=== PATIENT | male | born 1990 | race Caucasian/White ===

== ENCOUNTER → 2023-05-31 09:50 | Outpatient (BNVA) | payer SELFPAY | PROVIDERS: Visit Provider Internal Medicine | DX: Z02.79 Encounter for issue of other medical certificate (principal) ==

== ENCOUNTER 2024-12-24 20:01 | Emergency (ER) | payer SELFPAY ==
[2024-12-24 20:22] VITALS: BP 143/66; PULSE 95; RESP 18; TEMP 36.6; O2SAT 95; BMI 38.0
--- NOTE | 2024-12-24 20:29 | ED.GENADULT ---
HPI - General Adult General Chief complaint: Extremity Injury, Lower Stated complaint: left leg pain (r/o blood clot) Time Seen by Provider: 12/25/24 00:21 Source: patient Mode of arrival: wheelchair Limitations: no limitations History of Present Illness ED Provider: HPI narrative: 34-year-old male presenting with left lower extremity pain, he states he was running to his car and felt a sharp pain in the back of his left calf and since then he has not been able to bear weight, no deformity no fevers or chills. He also sustained superficial scratch to the skull is not causing him any issues Related Data Allergies Allergy/AdvReac Type Severity Reaction Status Date / Time No Known Allergies Allergy Mild NKA Verified 12/24/24 20:27 PMF Social History Social History Smoked in Last 30 Days: No Use of substances other than those prescribed or required for medical reasons: No Advance Directives: No Advance Directives Information Provided: No Do you have a plan to hurt others: No Plan Physical Exam ED Vital Signs: Vital Signs - 24 hr 12/24/24 20:22 12/25/24 01:02 Temperature 98 F 98.1 F Pulse Rate 95 87 Respiratory Rate 18 16 Blood Pressure 143/66 H 139/84 Pulse Oximetry 95 98 Oxygen Delivery Method Room Air Room Air BMI result Body Mass Index 38.0 Course Course Course Narrative: Medical screening exam performed. Please refer to detailed history, exam, evaluation, and management by primary provider. Left calf pain, after running, twisting. Able to bear weight and ambulate. No erythema or edema. JS Medications Administered Discontinued Medications Generic Name Dose Route Start Last Admin Trade Name Jackyq PRN Reason Stop Dose Admin Dexamethasone 10 mg 12/25/24 00:38 12/25/24 00:54 Dexamethasone 2 Mg Tablet PO 12/25/24 00:39 10 mg ONCE ONE Administration Ketorolac Tromethamine 15 mg 12/25/24 00:38 12/25/24 00:55 Ketorolac Tromethamine 15 Mg/Ml Vial IM 12/25/24 00:39 15 mg ONCE ONE Administration Medical Decision Making Medical Decision Making [facility] Narrative: Patient is presenting with injury to his left calf, there is no evidence for deformity to suspect underlying fracture, no involvement of the knee, Achilles tendon is intact, ankle joint is not involved, distal pulses intact, not consistent with arterial or venous insufficiency, I suspect strain of the medial calf, see my discharge instructions Differential Diagnosis Differential Diagnoses: The differential diagnosis associated with the presentation includes (See above) Tests considered The following testing was considered but not selected: Ultrasound, x-ray of the tibia fibula Discharge Plan Discharge Clinical Impression: Strain of left calf muscle Patient Disposition: Home, Self-Care Additional Instructions: Based of the physical examination you Achilles tendon is intact, there was no evidence for involvement of your knee or your ankle joint, I believe you sprained unlikely tore part of the ER medial calf, I recommend ice, elevation, for now ambulate with a boot and crutches, gentle stretching, ibuprofen 400 mg every 6 hours around the clock, and ice repeatedly throughout the day with a big bag of ice for 20 minutes that a clip This should continue to improve, worsening symptoms I will provide you with the orthopedic physician that you can call the office for follow up, any other issues concerns come back to the ER Referrals: [facility] [place] [facility] [Provider Group] Print Language: Eritrean
[2024-12-25 01:02] VITALS: BP 139/84; PULSE 87; RESP 16; TEMP 36.7; O2SAT 98
[2024-12-25 01:19] VITALS: BP 139/84; PULSE 87; RESP 16; TEMP 36.7; O2SAT 98
== END 2024-12-25 01:19 | disposition home or self-care (01) ==
PROVIDERS: Emergency Provider Emergency Medicine
DX: S86.912A Strain of unspecified muscle(s) and tendon(s) at lower leg level, left leg, initial encounter (principal); X58.XXXA Exposure to other specified factors, initial encounter; Y93.9 Activity, unspecified; Y92.9 Unspecified place or not applicable; Y99.9 Unspecified external cause status
CPT/HCPCS: 96372; 99284; J1885; J8540